=== PATIENT | male | born 1990 | race Two or more races ===

== ENCOUNTER 2020-07-16 20:13 | Emergency (ER) | payer MEDICAID, OTHER, SELFPAY ==
[~2020-07-16] VITALS: Ht 172.7 cm; Wt 63.3 kg
[2020-07-16 20:23] VITALS: BP 126/57
== END 2020-07-16 22:02 | disposition home or self-care (01) ==
LOC: ED 20:58
DX: G89.11 Acute pain due to trauma (principal); M79.672 Pain in left foot
CPT/HCPCS: 99283

== ENCOUNTER 2021-01-20 18:05 | Emergency (ER) | payer MEDICAID ==
[~2021-01-20] VITALS: Ht 172.7 cm; Wt 67.6 kg
[2021-01-20 18:17] VITALS: BP 140/70
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
--- NOTE | 2021-01-20 18:35 | NUR ---
ERPA AT BEDSIDE FOR EVALUATION.
[2021-01-20] MEDS ORDERED: CEFTRIAXONE 1,000 MG IM ONE (19:00)
[2021-01-20] MEDS ORDERED: CEFTRIAXONE 1,000 MG ONE (19:13)
--- NOTE | 2021-01-20 19:27 | NUR ---
pt req to leave at this time sts does not want to leave a urine sample. Patient/Caregiver given discharge instructions and they have confirmed that they understand the instructions. Patient ambulatory with steady gait.
== END 2021-01-20 19:29 | disposition home or self-care (01) ==
LOC: ED 19:00
DX: A51.0 Primary genital syphilis (principal); F17.210 Nicotine dependence, cigarettes, uncomplicated
CPT/HCPCS: 87491; 87591; 96372; 99283; 99406; J0696

== ENCOUNTER 2021-04-29 22:13 | Emergency (ER) | payer MEDICAID ==
[~2021-04-29] VITALS: Ht 172.7 cm; Wt 65.3 kg
[2021-04-29 22:18] VITALS: BP 129/76
--- NOTE | 2021-04-29 23:45 | NUR ---
CALLED IN THE LOBBY, NO ANSWER
--- NOTE | 2021-04-29 23:55 | NUR ---
CALLED IN THE LOBBY, NO ANSWER
--- NOTE | 2021-04-30 00:40 | NUR ---
CALLED IN THE LOBBY, NO ANSWER.
== END 2021-04-30 01:18 | disposition left against medical advice (07) ==
LOC: ED 04-30
DX: R10.9 Unspecified abdominal pain (principal); Z53.21 Procedure and treatment not carried out due to patient leaving prior to being seen by health care provider